=== PATIENT | female | born 1975 | race Caucasian/White ===

== ENCOUNTER 2019-01-05 12:25 | Emergency (ER) | payer BC, OTHER ==
[~2019-01-05] VITALS: Ht 175.3 cm; Wt 109.1 kg
[2019-01-05] MEDS ORDERED: SAXE1INJ SC (12:33)
[2019-01-05] MEDS ORDERED: WELLTAB40 PO (12:33)
[2019-01-05 13:40] LABS: BASO % 0.2 % (0.0-1.0); EOS # 0.3 10^3/uL (0.0-0.5); EOS % 3.5 % (0.0-3.0); HEMATOCRIT 40.2 % (36.0-47.0); HEMOGLOBIN 13.3 g/dl (12.0-15.5); LYMPH # 1.3 10^3/uL (1.5-5.0); LYMPH % 15.9 % (24.0-44.0); MEAN CORPUSCULAR HEMOGLOBIN 28.8 pg (27.0-33.0); MEAN CORPUSCULAR HGB CONC 33.1 g/dl (32.0-36.5); MONO # 0.5 10^3/uL (0.0-0.8); MONO % 6.1 % (0.0-5.0); NEUTROPHILS # 6.2 10^3/uL (1.5-8.5); NEUTROPHILS % 73.8 % (36.0-66.0); PLATELET COUNT, AUTOMATED 258 10^3/uL (150-450); RED BLOOD COUNT 4.62 10^6/uL (4.00-5.40); WHITE BLOOD COUNT 8.4 10^3/uL (4.0-10.0)
--- NOTE | 2019-01-05 13:43 | REP ---
Two-view chest: 01/05/2019. Indication: Chest pain. Epigastric pain. Comparison: None. Findings: The lungs are clear. There is no pleural effusion or pneumothorax. The cardiomediastinal silhouette is unremarkable. Impression: No acute cardiopulmonary process. Electronically Signed by Cory Marcos DO 01/05/2019 01:35 P
[2019-01-05 14:17] LABS: ALBUMIN 3.4 GM/DL (3.2-5.2); ALT/SGPT 27 U/L (12-78); BILIRUBIN,DIRECT 0.2 MG/DL (0.0-0.2); BILIRUBIN,TOTAL 1.1 MG/DL (0.2-1.0); BLOOD UREA NITROGEN 12 MG/DL (7-18); CALCIUM LEVEL 8.2 MG/DL (8.5-10.1); CARBON DIOXIDE LEVEL 27 MEQ/L (21-32); CHLORIDE LEVEL 107 MEQ/L (98-107); CK-MB VALUE MASS 1.6 NG/ML (<3.6); CPK CREATINE PHOSPHOKINASE 214 U/L (26-192); CREATININE FOR GFR 0.99 MG/DL (0.55-1.30); GLOMERULAR FILTRATION RATE > 60.0 (>58); GLUCOSE, FASTING 79 MG/DL (70-100); LIPASE 60 U/L (73-393); MB/CK RELATIVE INDEX 0.75 (< OR =4); POTASSIUM SERUM 3.4 MEQ/L (3.5-5.1); SODIUM LEVEL 141 MEQ/L (136-145); TOTAL PROTEIN 6.9 GM/DL (6.4-8.2); TROPONIN I < 0.02 NG/ML (< 0.10)
[2019-01-05] MEDS ORDERED: ISOVUE-370 76% 100ML VIAL (Q9967) As Ordered ONE (14:36)
--- NOTE | 2019-01-05 15:33 | REP ---
CT pulmonary angiogram: With IV contrast. History: Abdominal pain radiating to the back. Comparison studies: No comparison study. Contrast dose: 100 mL of Isovue [address] technique: Helical scanning is acquired and overlapping 1.5 mm and contiguous 3 mm axial images are reformatted. In addition, maximum intensity projection and multiplanar re-formation images are generated in sagittal and coronal imaging projections. CT pulmonary angiographic findings: There is good opacification in the pulmonary arterial tree. There is no CT evidence of pulmonary embolism. Thoracic aorta is normal in course and caliber and enhances homogeneously. No aneurysm or dissection is seen. No pleural or pericardial effusion is seen. There is evidence of fatty infiltration of the liver diffusely. No adrenal lesion is seen. There is a somewhat small nodular area of increased attenuation in the dependent portion the gallbladder consistent gallstones. No hilar or mediastinal mass or adenopathy is observed. Lung window settings show no pulmonary infiltrate or mass lesion. No significant pulmonary nodule is appreciated. There is a 3 mm benign perifissural nodule on the left. Lung b[place] are otherwise clear. No bony destructive lesion is appreciated. Impression: No CT evidence of pulmonary embolus. Mild diffuse fatty infiltration of the liver. Findings consistent with gallstones. Otherwise negative. Electronically Signed by Bravo Rhoades MD 01/05/2019 04:59 P
--- NOTE | 2019-01-05 15:36 | REP ---
CT abdomen and pelvis with IV but without oral contrast: History: Abdomen pain radiating to the back. CT contrast dose: 100 mL of intravenous Isovue 370. CT findings: There is evidence of moderate diffuse fatty infiltration of the liver. Somewhat nodular areas of increased attenuation are seen in the dependent portion of the gallbladder suggestive of gallstones. No adrenal lesion is seen. No focal splenic lesion is observed. The pancreas is unremarkable. The kidneys are morphologically intact and enhance symmetrically. No retroperitoneal mass or adenopathy is observed. A normal appendix is seen in the right lower quadrant. No abdominal wall defect is seen. The uterus is surgically absent. There is no evidence of free air or obstructive lesion. No abnormal fluid collection is seen. Urinary bladder is unremarkable. Impression: Diffuse fatty infiltration of the liver. Probable gallstones. Otherwise unremarkable CT study abdomen and pelvis. Electronically Signed by Bravo Rhoades MD 01/05/2019 04:59 P
[2019-01-05] MEDS ORDERED: CYCLOBENZAPRINE 10 MG TAB PO ONE (16:00)
[2019-01-05] MEDS ORDERED: POTASSIUM CHLORIDE 10 MEQ SR TABLET PO ONE (16:00)
[2019-01-05] MEDS ORDERED: GI COCKTAIL 50ML BTL(HYOSCYAMINE/MAALOX/LIDOCAINE VISCOUS)(1:3:1) PO ONE (16:00)
[2019-01-05] MEDS ORDERED: CYCL5TAB PO (16:51)
[2019-01-05] MEDS ORDERED: PROT1TAB2 PO (16:51)
[2019-01-05 17:02] VITALS: BP 147/77
--- NOTE | 2019-01-06 15:00 | ECGEPIP ---
[facility] - ED Test Date: 2019-01-05 Pat Name: CARLOS SEVILLA Department: Room: - Gender: Female [place] Driver: [facility] : [id number] Requested By: ERIC Rubio PA-C Order Number: [id number] Reading MD: Mark Reed Measurements Intervals [place] Rate: 78 P: 19 DC: 153 QRS: 1 QRSD: 89 T: 28 QT: 393 QTc: 450 Interpretive Statements SINUS RHYTHM NSTTW ABNORMALITIES NO PRIORS FOR COMPARISON Electronically Signed on 01-06-2019 14:59:44 EST by Mark Reed
== END 2019-01-05 17:10 | disposition home or self-care (01) ==
LOC: M ED 12:25
DX: K76.0 Fatty (change of) liver, not elsewhere classified (principal); E87.6 Hypokalemia; K80.20 Calculus of gallbladder without cholecystitis without obstruction; S39.011A Strain of muscle, fascia and tendon of abdomen, initial encounter; X58.XXXA Exposure to other specified factors, initial encounter; Y92.89 Other specified places as the place of occurrence of the external cause; Z79.899 Other long term (current) drug therapy
CPT/HCPCS: 36415; 71046; 71275; 74177; 80048; 80076; 81001; 82550; 82553; 83690; 84484; 85025; 93005; 99284; Q9967